=== PATIENT | male | born 1960 | race African-American/Black ===

== ENCOUNTER 2018-08-15 18:51 | Inpatient (IN) | payer OTHER ==
[2018-08-15 20:07] VITALS: BMI 20.8
--- NOTE | 2018-08-15 21:55 | HP ---
COWS - Scale Resting Pulse: 0= [place] 80 or Below Sweatin= Chills/Flushing Restless Observation: 0= Sits Still Pupil Size: 0= Normal to Room Light Bone or Joint Aches: 4=Acute Joint/Muscle Pain Runny Nose/ Eye Tearin= Runny Nose/Eyes GI Upset > 30mins: 2= Nausea/Diarrhea (diarrhea x 2) Tremor Observation: 2= Slight Tremor Visible Yawning Observation: 0= None Anxiety or Irritability: 4=Extreme Anxiety Goose Flesh Skin: 0=Smooth Skin COWS Score: 15 CIWA Score - Admission Criteria OASAS Guidelines: Admission for Medically Managed Detox: Requires at least one of the followin. CIWA greater than 12 2. Seizures within the past 24 hours 3. Delirium tremens within the past 24 hours 4. Hallucinations within the past 24 hours 5. Acute intervention needed for co occurring medical disorder 6. Acute intervention needed for co occurring psychiatric disorder 7. Severe withdrawal that cannot be handled at a lower level of care (continued vomiting, continued diarrhea, abnormal vital signs) requiring intravenous medication and/or fluids 8. Admission ROS [facility] Chief Complaint: Heroin withdrawal symptoms Allergies/Adverse Reactions: Allergies Allergy/AdvReac Type Severity Reaction Status Date / Time ketorolac [From Toradol] Allergy Severe Rash Verified 08/15/18 20:03 History of Present Illness: 58 years old male with a year history of heroin dependence is seeking admission to detox. Patient reports that this is first detox and first admission to [facility]. He reports history of depression and denies suicide attempt/ suicidal ideation at this time. Exam Limitations: No Limitations - Ebola screening Have you traveled outside of the country in the last 21 days: No Have you had contact with anyone from an Ebola affected area: No Have you been sick,other than usual withdrawal symptoms: No Do you have a fever: No - Review of Systems Constitutional: Chills, Malaise, Changes in sleep EENT: reports: Sinus Pressure Respiratory: reports: No Symptoms reported Cardiac: reports: No Symptoms Reported GI: reports: Diarrhea, Poor Appetite, Poor Fluid Intake, Abdominal cramping : reports: No Symptoms Reported Musculoskeletal: reports: Back Pain Integumentary: reports: Dryness, Flushing Neuro: reports: Tremors Endocrine: reports: No Symptoms Reported Hematology: reports: No Symptoms Reported Psychiatric: reports: Anxious, Depressed Other Systems: Reviewed and Negative Patient History - Patient Medical History Hx Anemia: No Hx Asthma: No Hx Chronic Obstructive Pulmonary Disease (COPD): No Hx Cancer: No Hx Cardiac Disorders: No Hx Congestive Heart Failure: No Hx Hypertension: No Hx Hypercholesterolemia: No Hx Pacemaker: No HX Cerebrovascular Accident: No Hx Seizures: No Hx Dementia: No Hx Diabetes: No Hx Gastrointestinal Disorders: No Hx Liver Disease: No Hx Genitourinary Disorders: No Hx Sexually Transmitted Disorders: No Hx Renal Disease (ESRD): No Hx Thyroid Disease: No Hx Human Immunodeficiency Virus (HIV): No (Negative 2017) Hx Hepatitis C: No Hx Depression: Yes (Not on medication) Hx Suicide Attempt: No (Denies suicidal ideation at this time) Hx Bipolar Disorder: No Hx Schizophrenia: No - Patient Surgical History Past Surgical History: No - PPD History Previous Implant?: Yes ([facility] for a year) Documented Results: Positive w/o proof Implanted On Prior [facility] Admission?: No PPD to be Administered?: No - Reproductive History Patient is a Female of Child Bearing Age (11 -55 yrs old): No (Male) - Smoking Cessation Smoking history: Current every day smoker Have you smoked in the past 12 months: Yes Aproximately how many cigarettes per day: 5 Hx Chewing Tobacco Use: No Initiated information on smoking cessation: Yes 'Breaking Loose' booklet given: 08/15/18 - Substance & Tx. History Hx Alcohol Use: No Hx Substance Use: Yes Substance Use Type: Cocaine, Heroin Hx Substance Use Treatment: No - Substances abused Heroin Substance route: Inhalation Frequency: Daily Amount used: 15 bags Age of first use: 58 Date of last use: 08/12/18 Cocaine Substance route: Inhalation Amount used: 1 bag Age of first use: 57 Date of last use: 08/14/18 Family Disease History - Family Disease History Family History: Denies Admission Physical Exam BHS - Vital Signs Vital Signs: Vital Signs - 24 hr 08/15/18 19:59 Temperature 98.6 F Pulse Rate 69 Respiratory 20 Rate Blood Pressure 151/92 - Physical General Appearance: Yes: Moderate Distress, Tremorous, Anxious HEENTM: Yes: EOMI, Normal ENT Inspection, Normal Voice, ISELA Respiratory: Yes: Normal Breath Sounds, No Respiratory Distress Neck: Yes: Supple Breast: Yes: Breast Exam Deferred Abdominal: Yes: Normal Bowel Sounds Genitourinary: Yes: Within Normal Limits Back: Yes: Normal Inspection Musculoskeletal: Yes: Back pain Extremities: Yes: Tremors Integumentary: Yes: Warm Lymphatic: Yes: Within Normal Limits - Diagnostic (1) Opioid dependence with withdrawal Current Visit: Yes Status: Acute (2) Nicotine dependence Current Visit: Yes Status: Chronic Qualifiers: Nicotine product type: cigarettes Substance use status: uncomplicated Qualified Code(s): F17.210 - Nicotine dependence, cigarettes, uncomplicated (3) Depression Current Visit: Yes Status: Chronic Qualifiers: Depression Type: unspecified Qualified Code(s): F32.9 - Major depressive disorder, single episode, unspecified Cleared for Admission S - Detox or Rehab [facility] Level of Care: Medically Managed Detox Regimen/Protocol: Methadone Breathalyzer - Breathalyzer Breathalyzer: 0 Urine Drug Screen - Test Device Lot number: [id number] Expiration date: 06/30/19 - Control Is test valid?: Yes - Results Drug screen NEGATIVE: No Urine drug screen results: CHERI-Cocaine, MOP-Opiates Inpatient Rehab Admission - Rehab Decision to Admit Inpatient rehab admission?: No
[2018-08-15] MEDS ORDERED: MENTHOL/PHENOL 1 EACH UD MM PRN (22:04)
[2018-08-15] MEDS ORDERED: MAG HYDROX/AL HYDROX/SIMETH 30 ML UNIT-DOSE CUP PO PRN (22:04)
[2018-08-15] MEDS ORDERED: MAGNESIUM CITRATE 300 ML BOTTLE PO PRN (22:04)
[2018-08-15] MEDS ORDERED: MAGNESIUM HYDROX 2400MG/30ML ORAL SUSPENSION 30 ML CUP PO PRN (22:04)
[2018-08-15] MEDS ORDERED: NICOTINE POLACRILEX 2 MG GUM BUC PRN (22:04)
[2018-08-15] MEDS ORDERED: ACETAMINOPHEN 325 MG TABLET (FP) PO PRN ×2 (22:04)
[2018-08-15] MEDS ORDERED: METHADONE HCL 10 MG TABLET (FOR DETOX USE ONLY) PO ONE (23:00)
[2018-08-15] MEDS: MELATONIN 5 MG TABLETS PO PRN (23:04)
[2018-08-15] MEDS: hydrOXYzine PAMOATE 25 MG CAPSULE (FP) PO PRN (23:04)
[2018-08-15] MEDS: cloNIDine HCL 0.1 MG TABLET PO PRN (23:04)
[2018-08-16] MEDS ORDERED: METHADONE HCL 10 MG TABLET (FOR DETOX USE ONLY) PO ONE (10:00)
[2018-08-16 10:05] LABS: HEMATOCRIT 36.9 % (35.4-49); HEMOGLOBIN 11.8 GM/dL (11.7-16.9); MEAN CELL VOLUME 84.1 fl (80-96); MEAN PLT VOLUME 7.8 fl (7.5-11.1); PLATELET COUNT 297 K/MM3 (134-434); RBC 4.38 M/mm3 (4.00-5.60); RDW 13.3 % (11.9-15.9); WHITE BLOOD COUNT 5.5 K/mm3 (4.0-10.0)
[2018-08-16] MEDS: PRENATAL VITAMINS W/ FOLIC ACID TABLET (FP) PO SCH (10:06)
[2018-08-16] MEDS: NICOTINE 14 MG/24 HOURS TOPICAL PATCH TD SCH (10:07)
[2018-08-16 10:09] LABS: ALBUMIN 3.2 g/dl (3.4-5.0); BILIRUBIN,TOTAL 0.6 mg/dL (0.2-1); CALCIUM 8.5 mg/dL (8.5-10.1); CREATININE 1.2 mg/dL (0.55-1.3); POTASSIUM 4.1 mmol/L (3.5-5.1); TOT PROT 6.6 g/dl (6.4-8.2)
--- NOTE | 2018-08-16 13:38 | EKG ---
Test Reason : Blood Pressure : / mmHG Vent. Rate : 075 BPM Atrial Rate : 075 BPM P-R Int : 130 ms QRS Dur : 080 ms QT Int : 386 ms P-R-T Axes : 073 080 065 degrees QTc Int : 431 ms NORMAL SINUS RHYTHM WITH SINUS ARRHYTHMIA NORMAL ECG NO PREVIOUS ECGS AVAILABLE Confirmed by HERMILO CADENA MD ([id number]) on 08/16/2018 1:37:52 PM Referred By: LLOYD Confirmed By:HERMILO CADENA MD
--- NOTE | 2018-08-16 14:40 | PN ---
BHS COWS - Scale Resting Pulse: 0= [place] 80 or Below Sweatin= Chills/Flushing Restless Observation: 0= Sits Still Pupil Size: 0= Normal to Room Light Bone or Joint Aches: 2= Severe Diffuse Aches Runny Nose/ Eye Tearin= Runny Nose/Eyes GI Upset > 30mins: 0= None Tremor Observation of Outstretched Hands: 0= None Yawning Observation: 1= 1-2x During Session Anxiety or Irritability: 2=Irritable/Anxious Goose Flesh Skin: 3=Piloerection COWS Score: 11 BHS Progress Note (SOAP) Subjective: Sweating, Body Aches, Nasal Congestion. Objective: PATIENT A & O X 2 (UNCERTAIN ABOUT CURRENT DAY / DATE). PATIENT OBSERVED AMBULATING ON UNIT UNASSISTED. IN NO ACUTE DISTRESS. 08/16/18 14:40 Vital Signs Temperature 98.4 F 08/16/18 12:54 Pulse Rate 77 08/16/18 12:54 Respiratory Rate 20 08/16/18 12:54 Blood Pressure 135/84 08/16/18 12:54 O2 Sat by Pulse Oximetry (%) Laboratory Tests 08/16/18 08/16/18 08/16/18 07:00 07:00 07:00 WBC 5.5 RBC 4.38 Hgb 11.8 Hct 36.9 MCV 84.1 MCH 27.0 MCHC 32.0 RDW 13.3 Plt Count 297 MPV 7.8 Sodium 140 Potassium 4.1 Chloride 104 Carbon Dioxide 29 Anion Gap 6 L BUN 12 Creatinine 1.2 Est GFR (CKD-EPI)AfAm 77.88 Est GFR (CKD-EPI)NonAf 67.19 Random Glucose 149 H Calcium 8.5 Total Bilirubin 0.6 AST 17 ALT 14 Alkaline Phosphatase 132 H Total Protein 6.6 Albumin 3.2 L RPR Titer Nonreactive LABS NOTED. Assessment: 08/16/18 14:41 WITHDRAWAL SYMPTOMS. HYPERGLYCEMIA. 08/16/18 14:42 Plan: CONTINUE DETOX. INCREASE DAILY PO FLUID INTAKE. BGM ACBK FOR ELEVATED ADMISSION RANDOM GLUCOSE LEVEL. LIDOCAINE PATCH FOR LOWER BACK PAIN.
[2018-08-16] MEDS: LIDOCAINE 5% TOPICAL PATCH TP SCH (16:13)
[2018-08-16] MEDS: hydrOXYzine PAMOATE 25 MG CAPSULE (FP) PO PRN (22:16)
[2018-08-16] MEDS: MELATONIN 5 MG TABLETS PO PRN (22:16)
[2018-08-16] MEDS: THIAMINE HCL 100 MG TABLET (FP) PO SCH (22:16)
[2018-08-16] MEDS: LIDOCAINE PATCH REMOVAL MC SCH (22:17)
[2018-08-17] MEDS: hydrOXYzine PAMOATE 25 MG CAPSULE (FP) PO PRN ×2 (07:00→19:51)
[2018-08-17] MEDS: cloNIDine HCL 0.1 MG TABLET PO PRN ×2 (07:00→15:28)
[2018-08-17] MEDS: METHOCARBAMOL 500 MG TABLET PO PRN ×2 (07:03→19:51)
[2018-08-17] MEDS: PRENATAL VITAMINS W/ FOLIC ACID TABLET (FP) PO SCH (09:46)
[2018-08-17] MEDS: NICOTINE 14 MG/24 HOURS TOPICAL PATCH TD SCH (09:47)
[2018-08-17] MEDS ORDERED: METHADONE HCL 10 MG TABLET (FOR DETOX USE ONLY) PO ONE (10:00)
[2018-08-17] MEDS: LIDOCAINE 5% TOPICAL PATCH TP SCH (10:03)
--- NOTE | 2018-08-17 10:57 | PN ---
BHS COWS - Scale Resting Pulse: 0= [place] 80 or Below Sweatin= Chills/Flushing Restless Observation: 3= Extraneous Movement Pupil Size: 0= Normal to Room Light Bone or Joint Aches: 1= Mild Discomfort Runny Nose/ Eye Tearin= None GI Upset > 30mins: 1= Stomach Cramp Tremor Observation of Outstretched Hands: 2= Slight Tremor Visible Yawning Observation: 1= 1-2x During Session Anxiety or Irritability: 1=Feels Anxious/Irritable Goose Flesh Skin: 0=Smooth Skin COWS Score: 10 BHS Progress Note (SOAP) Subjective: ANXIETY, FATIGUE, HOT/COLD CHILLS, SWEATS. Objective: 08/17/18 10:56 Vital Signs 08/17/18 08/17/18 08/17/18 03:30 06:01 06:30 Temperature 98.5 F Pulse Rate 61 Respiratory 18 18 18 Rate Blood Pressure 147/78 08/17/18 09:09 Temperature 98.1 F Pulse Rate 61 Respiratory 18 Rate Blood Pressure 107/56 L Laboratory Tests 08/16/18 08/16/18 08/16/18 07:00 07:00 07:00 WBC 5.5 RBC 4.38 Hgb 11.8 Hct 36.9 MCV 84.1 MCH 27.0 MCHC 32.0 RDW 13.3 Plt Count 297 MPV 7.8 Sodium 140 Potassium 4.1 Chloride 104 Carbon Dioxide 29 Anion Gap 6 L BUN 12 Creatinine 1.2 Est GFR (CKD-EPI)AfAm 77.88 Est GFR (CKD-EPI)NonAf 67.19 Random Glucose 149 H Calcium 8.5 Total Bilirubin 0.6 AST 17 ALT 14 Alkaline Phosphatase 132 H Total Protein 6.6 Albumin 3.2 L RPR Titer Nonreactive LABS NOTED Assessment: 08/17/18 10:58 WITHDRAWAL SX ELEVATED GLC ELEVATED ALK PHOS Plan: CONTINUE DETOX INCREASE PO FLUIDS REPEAT ALK PHOS IN A.M BGM ACBK ORDERED BUT PT REFUSED BGM THIS MORNING PER NURSE VALERO'S NOTE. PT TO FOLLOW UP WITH HIS PCP AFTER DISCHARGE.
[2018-08-17] MEDS: THIAMINE HCL 100 MG TABLET (FP) PO SCH (22:11)
[2018-08-17] MEDS: LIDOCAINE PATCH REMOVAL MC SCH (22:11)
[2018-08-17] MEDS: MELATONIN 5 MG TABLETS PO PRN (22:12)
[2018-08-18] MEDS: METHOCARBAMOL 500 MG TABLET PO PRN ×2 (06:56→17:45)
[2018-08-18] MEDS: hydrOXYzine PAMOATE 25 MG CAPSULE (FP) PO PRN ×3 (06:56→19:51)
[2018-08-18] MEDS: PRENATAL VITAMINS W/ FOLIC ACID TABLET (FP) PO SCH (09:45)
[2018-08-18] MEDS: NICOTINE 14 MG/24 HOURS TOPICAL PATCH TD SCH (09:45)
[2018-08-18] MEDS ORDERED: METHADONE HCL 10 MG TABLET (FOR DETOX USE ONLY) PO ONE (10:00)
[2018-08-18] MEDS: LIDOCAINE 5% TOPICAL PATCH TP SCH (11:14)
--- NOTE | 2018-08-18 13:43 | PN ---
BHS COWS - Scale Resting Pulse: 0= [place] 80 or Below Sweatin= Chills/Flushing Restless Observation: 0= Sits Still Pupil Size: 0= Normal to Room Light Bone or Joint Aches: 1= Mild Discomfort Runny Nose/ Eye Tearin= None GI Upset > 30mins: 1= Stomach Cramp Tremor Observation of Outstretched Hands: 1= Tremor [place], Not Seen Yawning Observation: 1= 1-2x During Session Anxiety or Irritability: 1=Feels Anxious/Irritable Goose Flesh Skin: 0=Smooth Skin COWS Score: 6 S Progress Note (SOAP) Subjective: feeling better discuss medication assisted maintenance treatment program encourage bulk picker narcan kit from pharmacy Objective: 08/18/18 13:42 Vital Signs Temperature 97.3 F L 08/18/18 13:08 Pulse Rate 78 08/18/18 13:08 Respiratory Rate 19 08/18/18 13:08 Blood Pressure 128/64 08/18/18 13:08 O2 Sat by Pulse Oximetry (%) Laboratory Last Values WBC 5.5 K/mm3 (4.0-10.0) 08/16/18 07:00 RBC 4.38 M/mm3 (4.00-5.60) 08/16/18 07:00 Hgb 11.8 GM/dL (11.7-16.9) 08/16/18 07:00 Hct 36.9 % (35.4-49) 08/16/18 07:00 MCV 84.1 fl (80-96) 08/16/18 07:00 MCH 27.0 pg (25.7-33.7) 08/16/18 07:00 MCHC 32.0 g/dl (32.0-35.9) 08/16/18 07:00 RDW 13.3 % (11.9-15.9) 08/16/18 07:00 Plt Count 297 K/MM3 (134-434) 08/16/18 07:00 MPV 7.8 fl (7.5-11.1) 08/16/18 07:00 Sodium 140 mmol/L (136-145) 08/16/18 07:00 Potassium 4.1 mmol/L (3.5-5.1) 08/16/18 07:00 Chloride 104 mmol/L (98-107) 08/16/18 07:00 Carbon Dioxide 29 mmol/L (21-32) 08/16/18 07:00 Anion Gap 6 MMOL/L (8-16) L 08/16/18 07:00 BUN 12 mg/dL (7-18) 08/16/18 07:00 Creatinine 1.2 mg/dL (0.55-1.3) 08/16/18 07:00 Est GFR (CKD-EPI)AfAm 77.88 08/16/18 07:00 Est GFR (CKD-EPI)NonAf 67.19 08/16/18 07:00 Random Glucose 149 mg/dL (74-106) H 08/16/18 07:00 Calcium 8.5 mg/dL (8.5-10.1) 08/16/18 07:00 Total Bilirubin 0.6 mg/dL (0.2-1) 08/16/18 07:00 AST 17 U/L (15-37) 08/16/18 07:00 ALT 14 U/L (13-61) 08/16/18 07:00 Alkaline Phosphatase 120 U/L (45-117) H 08/18/18 07:50 Total Protein 6.6 g/dl (6.4-8.2) 08/16/18 07:00 Albumin 3.2 g/dl (3.4-5.0) L 08/16/18 07:00 RPR Titer Nonreactive (NONREACTIVE) 08/16/18 07:00 lab noted Assessment: 08/18/18 13:42 mild opiate withdrawal sx Plan: continue detox
[2018-08-18] MEDS: THIAMINE HCL 100 MG TABLET (FP) PO SCH (21:46)
[2018-08-18] MEDS: MELATONIN 5 MG TABLETS PO PRN (21:46)
[2018-08-18] MEDS: LIDOCAINE PATCH REMOVAL MC SCH (21:47)
[2018-08-19] MEDS: METHOCARBAMOL 500 MG TABLET PO PRN (05:07)
[2018-08-19] MEDS: hydrOXYzine PAMOATE 25 MG CAPSULE (FP) PO PRN (05:07)
[2018-08-19] MEDS ORDERED: METHADONE HCL 5 MG TABLET (FOR DETOX USE ONLY) PO ONE (06:00)
[2018-08-19 09:25] VITALS: BP 128/67; PULSE 65; TEMP 98.4
[2018-08-19] MEDS: NICOTINE 14 MG/24 HOURS TOPICAL PATCH TD SCH (10:21)
[2018-08-19] MEDS: LIDOCAINE 5% TOPICAL PATCH TP SCH (10:21)
[2018-08-19] MEDS: PRENATAL VITAMINS W/ FOLIC ACID TABLET (FP) PO SCH (10:21)
--- NOTE | 2018-08-19 15:23 | DS ---
[facility] Detox Discharge Summary Admission Date: 08/15/18 Discharge Date: 08/19/18 - History Present History: Opioid Dependence Additional Comments: 58 years old male admitted on 08/15/18 for opiate withdrawal stabilization completed detox regimen aftercare medication assisted maintenance treatment program Pertinent Past History: bring in medication list and lab report to aftercare appointment - Physical Exam Results Vital Signs: Vital Signs Temperature 98.4 F 08/19/18 09:25 Pulse Rate 65 08/19/18 09:25 Respiratory Rate 18 08/19/18 09:25 Blood Pressure 128/67 08/19/18 09:25 O2 Sat by Pulse Oximetry (%) Pertinent Admission Physical Exam Findings: opiate withdrawal sx Laboratory Last Values WBC 5.5 K/mm3 (4.0-10.0) 08/16/18 07:00 RBC 4.38 M/mm3 (4.00-5.60) 08/16/18 07:00 Hgb 11.8 GM/dL (11.7-16.9) 08/16/18 07:00 Hct 36.9 % (35.4-49) 08/16/18 07:00 MCV 84.1 fl (80-96) 08/16/18 07:00 MCH 27.0 pg (25.7-33.7) 08/16/18 07:00 MCHC 32.0 g/dl (32.0-35.9) 08/16/18 07:00 RDW 13.3 % (11.9-15.9) 08/16/18 07:00 Plt Count 297 K/MM3 (134-434) 08/16/18 07:00 MPV 7.8 fl (7.5-11.1) 08/16/18 07:00 Sodium 140 mmol/L (136-145) 08/16/18 07:00 Potassium 4.1 mmol/L (3.5-5.1) 08/16/18 07:00 Chloride 104 mmol/L (98-107) 08/16/18 07:00 Carbon Dioxide 29 mmol/L (21-32) 08/16/18 07:00 Anion Gap 6 MMOL/L (8-16) L 08/16/18 07:00 BUN 12 mg/dL (7-18) 08/16/18 07:00 Creatinine 1.2 mg/dL (0.55-1.3) 08/16/18 07:00 Est GFR (CKD-EPI)AfAm 77.88 08/16/18 07:00 Est GFR (CKD-EPI)NonAf 67.19 08/16/18 07:00 Random Glucose 149 mg/dL (74-106) H 08/16/18 07:00 Calcium 8.5 mg/dL (8.5-10.1) 08/16/18 07:00 Total Bilirubin 0.6 mg/dL (0.2-1) 08/16/18 07:00 AST 17 U/L (15-37) 08/16/18 07:00 ALT 14 U/L (13-61) 08/16/18 07:00 Alkaline Phosphatase 120 U/L (45-117) H 08/18/18 07:50 Total Protein 6.6 g/dl (6.4-8.2) 08/16/18 07:00 Albumin 3.2 g/dl (3.4-5.0) L 08/16/18 07:00 RPR Titer Nonreactive (NONREACTIVE) 08/16/18 07:00 lab noted - Treatment Hospital Course: Detox Protocol Followed, Detoxed Safely, Responded well, Discharged Condition Good, Rehab Referral Accepted Patient has Accepted a Rehab Referral to: medication assisted maintenance treatment program - Medication Discharge Medications: Ambulatory Orders Naloxone HCl [Narcan] 4 mg NS ASDIR PRN #1 spray 08/18/18 - Diagnosis (1) Opioid dependence with withdrawal Status: Acute (2) Nicotine dependence Status: Acute Qualifiers: Nicotine product type: cigarettes Substance use status: in withdrawal Qualified Code(s): F17.213 - Nicotine dependence, cigarettes, with withdrawal - AMA Did Patient Leave Against Medical Advice: No
== END 2018-08-19 11:22 | disposition home or self-care (01) | DRG 897 ==
LOC: YASAS 18:51 → Y3N 22:14
PROVIDERS: ADMIT Surgery; ATTEND Surgery
PROC: HZ2ZZZZ Detoxification Services for Substance Abuse Treatment (ICD-10-PCS; principal; 2018-08-15)
DX: F11.23 Opioid dependence with withdrawal (principal); F17.213 Nicotine dependence, cigarettes, with withdrawal; F32.9 Major depressive disorder, single episode, unspecified; R73.9 Hyperglycemia, unspecified; R94.8 Abnormal results of function studies of other organs and systems; Z59.0 Homelessness
CPT/HCPCS: 36415; 71046-TC-FY; 80053; 84075; 85027; 86593; 93005; 93010; J0735

== ENCOUNTER 2018-11-28 12:38 | Inpatient (IN) | payer OTHER ==
--- NOTE | 2018-11-28 14:16 | HP ---
COWS - Scale Resting Pulse: 0= [place] 80 or Below Sweatin=Flushed/Facial Moisture Restless Observation: 3= Extraneous Movement Pupil Size: 0= Normal to Room Light Bone or Joint Aches: 4=Acute Joint/Muscle Pain Runny Nose/ Eye Tearin= Runny Nose/Eyes GI Upset > 30mins: 0= None Tremor Observation: 1= Tremor [place], Not Seen Yawning Observation: 0= None Anxiety or Irritability: 1=Feels Anxious/Irritable Goose Flesh Skin: 0=Smooth Skin COWS Score: 13 CIWA Score - Admission Criteria OASAS Guidelines: Admission for Medically Managed Detox: Requires at least one of the followin. CIWA greater than 12 2. Seizures within the past 24 hours 3. Delirium tremens within the past 24 hours 4. Hallucinations within the past 24 hours 5. Acute intervention needed for co occurring medical disorder 6. Acute intervention needed for co occurring psychiatric disorder 7. Severe withdrawal that cannot be handled at a lower level of care (continued vomiting, continued diarrhea, abnormal vital signs) requiring intravenous medication and/or fluids 8. Admission ROS [facility] - [facility] Chief Complaint: detox heroin Allergies/Adverse Reactions: Allergies Allergy/AdvReac Type Severity Reaction Status Date / Time ketorolac [From Toradol] Allergy Severe Rash Verified 12/03/18 13:12 History of Present Illness: 58M h/o pancreatitis, h/o cardiac arrest 7-8ys prior at [facility], presenting for heroin detox, sniffs 10-15bags daily. Last usage was 2200 on 11/27/18. Tried detox at [facility] prior but did not get set up with a methadone program. Previous dosage was 55mg. Formerly, was prescribed Fentanyl patches for chronic LBP, ankle pain. Then transitioned to heroin for withdrawal symptoms after Medicaid was stopped 1 year ago. Uses cocaine, last usage yesterday. Takes 4-5bags daily. Former chronic alcoholic, drinking 24beers/daily, last drink 10ys prior. Smokes 5 cig/daily. Denies trouble with law. Formerly, worked with [employer] 10ys prior. Panhandles for money, [place]. Exam Limitations: No Limitations - Ebola screening Have you traveled outside of the country in the last 21 days: No Have you had contact with anyone from an Ebola affected area: No Do you have a fever: No - Review of Systems Constitutional: No Symptoms Reported EENT: reports: Tearing, Dental Problems. denies: Blurred Vision, Double Vision Respiratory: denies: Cough, Shortness of Breath Cardiac: denies: Chest Pain, Lightheadedness, Palpitations GI: denies: Abdominal Distended, Blood Streaked Bowels, Constipated, Diarrhea, Nausea, Vomiting : denies: Burning, Frequency, Urgency Musculoskeletal: reports: Back Pain, Joint Pain (Right ankle pain) Integumentary: reports: Dryness, Erythema Neuro: denies: Headache Endocrine: denies: Excessive Sweating, Flushing Psychiatric: reports: Anxious Patient History - Patient Medical History Hx Anemia: No Hx Asthma: No Hx Chronic Obstructive Pulmonary Disease (COPD): No Hx Cancer: No Hx Cardiac Disorders: No Hx Congestive Heart Failure: No Hx Hypertension: No Hx Hypercholesterolemia: No Hx Pacemaker: No HX Cerebrovascular Accident: No Hx Seizures: No Hx Dementia: No Hx Diabetes: No Hx Gastrointestinal Disorders: No Hx Liver Disease: No Hx Genitourinary Disorders: No Hx Sexually Transmitted Disorders: No Hx Renal Disease (ESRD): No Hx Thyroid Disease: No Hx Human Immunodeficiency Virus (HIV): No (Negative 2017) Hx Hepatitis C: No Hx Depression: Yes (Not on medication) Hx Suicide Attempt: No (Denies suicidal ideation at this time) Hx Bipolar Disorder: No Hx Schizophrenia: No - Patient Surgical History Past Surgical History: No Hx Neurologic Surgery: No Hx Cataract Extraction: No Hx Cardiac Surgery: No Hx Lung Surgery: No Hx Breast Surgery: No Hx Breast Biopsy: No Hx Abdominal Surgery: No Hx Appendectomy: No Hx Cholecystectomy: No Hx Genitourinary Surgery: No Hx Section: No Hx Orthopedic Surgery: No Other Surgical History: INTESTINAL SURGERY Anesthesia Reaction: No - Smoking Cessation Smoking history: Current every day smoker Have you smoked in the past 12 months: Yes Aproximately how many cigarettes per day: 5 Hx Chewing Tobacco Use: No Initiated information on smoking cessation: No - Substance & Tx. History Hx Alcohol Use: Yes Hx Substance Use: Yes Substance Use Type: Alcohol, Cocaine, Heroin, Opiates, Prescribed - Substances abused Heroin Substance route: Inhalation Frequency: Daily Amount used: 15 bags Age of first use: 58 Date of last use: 11/27/18 Cocaine Substance route: Inhalation Amount used: 1 bag Age of first use: 57 Date of last use: 11/27/18 Alcohol Substance route: Oral Frequency: Daily Amount used: 1 pint of gin/ 1 case of beer. Age of first use: 22 Date of last use: 11/27/18 Family Disease History - Family Disease History Other Family History: no known hx Admission Physical Exam [facility] - Vital Signs Vital Signs: Vital Signs - 24 hr 11/28/18 13:27 Temperature 97.6 F Pulse Rate 58 L Respiratory 20 Rate Blood Pressure 124/71 - Physical General Appearance: Yes: Cachetic, Sweating, Anxious HEENTM: Yes: Normocephalic, Other (moderate temporal wasting). No: Pale Conjunctivae R, Pale Conjunctivae L, Scleral Ictenus R, Scleral Ictenus L Respiratory: Yes: Lungs Clear. No: Chest Non-Tender, Decreased Breath Sounds, Labored Respiration, No Accessory Muscle Use, Stridor, Wheezing Neck: Yes: Supple, Trachea in good position Cardiology: Yes: Regular Rhythm, S1, S2, Bradycardia Abdominal: Yes: Soft. No: Guarding, Rebound, Tenderness Back: No: Vertebral Tenderness Extremities: Yes: Other (Right ankle swelling w/o edema, nonTTP) Neurological: Yes: Alert, Other (oriented to person, plalce) Integumentary: Yes: Dry, Warm Cleared for Admission [facility] - Detox or Rehab [facility] Level of Care: Medically Managed Detox Regimen/Protocol: Methadone Breathalyzer - Breathalyzer Breathalyzer: 0 Urine Drug Screen - Test Device Lot number: [id number] Expiration date: 06/30/19 - Control Is test valid?: Yes - Results Drug screen NEGATIVE: No Urine drug screen results: CHERI-Cocaine, MOP-Opiates Inpatient Rehab Admission - Rehab Decision to Admit Inpatient rehab admission?: No
--- NOTE | 2018-11-28 14:53 | PN ---
Teaching Attending Note Name of Resident: Rickey Banks ATTENDING PHYSICIAN STATEMENT I saw and evaluated the patient. I reviewed the resident's note and discussed the case with the resident. I agree with the resident's findings and plan as documented. SUBJECTIVE: 58 yo with h/o pancreatitis here for cocaine use and heroin use disorders- here for detox. Was on fentanyl patch for pain after a fall, switched to heroin last year. Was in a MAT methadone program- left earlier this. homeless. OBJECTIVE: Vital Signs - 24 hr 11/28/18 13:27 Temperature 97.6 F Pulse Rate 58 L Respiratory 20 Rate Blood Pressure 124/71 alert and oriented X2 ASSESSMENT AND PLAN: Admit for heroin detox protocol
[2018-11-28] MEDS ORDERED: MENTHOL/PHENOL 1 EACH UD MM PRN (15:08)
[2018-11-28] MEDS ORDERED: NICOTINE POLACRILEX 4 MG GUM BUC PRN (15:08)
[2018-11-28] MEDS ORDERED: BISMUTH SUBSALICYLATE 524 MG/30 ML UD PO PRN (15:08)
[2018-11-28] MEDS ORDERED: MAGNESIUM CITRATE 300 ML BOTTLE PO PRN (15:08)
[2018-11-28] MEDS ORDERED: IBUPROFEN 400 MG TABLET (FP) PO PRN (15:08)
[2018-11-28] MEDS ORDERED: MAGNESIUM HYDROX 2400MG/30ML ORAL SUSPENSION 30 ML CUP PO PRN (15:08)
[2018-11-28] MEDS ORDERED: MAG HYDROX/AL HYDROX/SIMETH 30 ML UNIT-DOSE CUP PO PRN (15:08)
[2018-11-28] MEDS ORDERED: ACETAMINOPHEN 325 MG TABLET (FP) PO PRN ×2 (15:08)
[2018-11-28] MEDS ORDERED: METHADONE HCL 10 MG TABLET (FOR DETOX USE ONLY) PO ONE (16:30)
[2018-11-28] MEDS: THIAMINE HCL 100 MG TABLET (FP) PO SCH (23:04)
[2018-11-29] MEDS ORDERED: METHADONE HCL 5 MG TABLET (FOR DETOX USE ONLY) ONE (09:35)
[2018-11-29] MEDS ORDERED: METHADONE HCL 10 MG TABLET (FOR DETOX USE ONLY) ONE (09:35)
[2018-11-29 09:59] LABS: HEMATOCRIT 35.5 % (35.4-49); HEMOGLOBIN 11.6 GM/dL (11.7-16.9); MCH 27.5 pg (25.7-33.7); MCHC 32.6 g/dl (32.0-35.9); MEAN CELL VOLUME 84.2 fl (80-96); MEAN PLT VOLUME 7.4 fl (7.5-11.1); PLATELET COUNT 292 K/MM3 (134-434); RBC 4.21 M/mm3 (4.00-5.60); RDW 13.6 % (11.9-15.9); WHITE BLOOD COUNT 5.2 K/mm3 (4.0-10.0)
[2018-11-29] MEDS ORDERED: METHADONE (DETOX) 20 MG, METHADONE (DETOX) 5 MG PO ONE (10:00)
[2018-11-29 10:11] LABS: ALBUMIN 3.1 g/dl (3.4-5.0); BILIRUBIN,TOTAL 0.2 mg/dL (0.2-1); BLOOD UREA NITROGEN 9.2 mg/dL (7-18); CALCIUM 8.5 mg/dL (8.5-10.1); TOT PROT 6.1 g/dl (6.4-8.2)
[2018-11-29] MEDS: PRENATAL VITAMINS W/ FOLIC ACID TABLET (FP) PO SCH (10:16)
--- NOTE | 2018-11-29 13:38 | PN ---
S COWS - Scale Resting Pulse: 0= [place] 80 or Below Sweatin= Chills/Flushing Restless Observation: 1= Difficult to Sit Still Pupil Size: 1= Pupils >than Normal Bone or Joint Aches: 2= Severe Diffuse Aches Runny Nose/ Eye Tearin= Runny Nose/Eyes GI Upset > 30mins: 1= Stomach Cramp Tremor Observation of Outstretched Hands: 1= Tremor [place], Not Seen Yawning Observation: 1= 1-2x During Session Anxiety or Irritability: 2=Irritable/Anxious Goose Flesh Skin: 0=Smooth Skin COWS Score: 12 S Progress Note (SOAP) Subjective: alert,irritable,anxios,interrupted sleep,pain in the body and back Objective: 11/29/18 13:37 Vital Signs Temperature 97.6 F 11/29/18 09:44 Pulse Rate 46 L 11/29/18 09:44 Respiratory Rate 16 11/29/18 09:44 Blood Pressure 133/72 11/29/18 09:44 O2 Sat by Pulse Oximetry (%) Laboratory Last Values WBC 5.2 K/mm3 (4.0-10.0) 11/29/18 07:30 RBC 4.21 M/mm3 (4.00-5.60) 11/29/18 07:30 Hgb 11.6 GM/dL (11.7-16.9) L 11/29/18 07:30 Hct 35.5 % (35.4-49) 11/29/18 07:30 MCV 84.2 fl (80-96) 11/29/18 07:30 MCH 27.5 pg (25.7-33.7) 11/29/18 07:30 MCHC 32.6 g/dl (32.0-35.9) 11/29/18 07:30 RDW 13.6 % (11.9-15.9) 11/29/18 07:30 Plt Count 292 K/MM3 (134-434) 11/29/18 07:30 MPV 7.4 fl (7.5-11.1) L 11/29/18 07:30 Sodium 141 mmol/L (136-145) 11/29/18 07:30 Potassium 4.0 mmol/L (3.5-5.1) 11/29/18 07:30 Chloride 108 mmol/L (98-107) H 11/29/18 07:30 Carbon Dioxide 28 mmol/L (21-32) 11/29/18 07:30 Anion Gap 5 MMOL/L (8-16) L 11/29/18 07:30 BUN 9.2 mg/dL (7-18) 11/29/18 07:30 Creatinine 1.0 mg/dL (0.55-1.3) 11/29/18 07:30 Est GFR (CKD-EPI)AfAm 97.08 11/29/18 07:30 Est GFR (CKD-EPI)NonAf 83.76 11/29/18 07:30 Random Glucose 101 mg/dL (74-106) 11/29/18 07:30 Calcium 8.5 mg/dL (8.5-10.1) 11/29/18 07:30 Total Bilirubin 0.2 mg/dL (0.2-1) 11/29/18 07:30 AST 15 U/L (15-37) 11/29/18 07:30 ALT 11 U/L (13-61) L 11/29/18 07:30 Alkaline Phosphatase 123 U/L (45-117) H 11/29/18 07:30 Total Protein 6.1 g/dl (6.4-8.2) L 11/29/18 07:30 Albumin 3.1 g/dl (3.4-5.0) L 11/29/18 07:30 RPR Titer Nonreactive (NONREACTIVE) 11/29/18 07:30 Assessment: 11/29/18 13:38 withdrawal symptom Plan: continue detox methadone regimen
[2018-11-29] MEDS: cloNIDine HCL 0.1 MG TABLET PO PRN (22:31)
[2018-11-29] MEDS: THIAMINE HCL 100 MG TABLET (FP) PO SCH (22:31)
[2018-11-29] MEDS: MELATONIN 5 MG TABLETS PO PRN (22:31)
[2018-11-30] MEDS: hydrOXYzine PAMOATE 25 MG CAPSULE (FP) PO PRN ×2 (05:55→22:02)
[2018-11-30] MEDS: cloNIDine HCL 0.1 MG TABLET PO PRN ×2 (05:55→22:02)
[2018-11-30] MEDS ORDERED: METHADONE HCL 10 MG TABLET (FOR DETOX USE ONLY) PO ONE (10:00)
[2018-11-30] MEDS: PRENATAL VITAMINS W/ FOLIC ACID TABLET (FP) PO SCH (10:33)
--- NOTE | 2018-11-30 15:26 | PN ---
BHS COWS - Scale Resting Pulse: 0= [place] 80 or Below Sweatin= Chills/Flushing Restless Observation: 3= Extraneous Movement Pupil Size: 0= Normal to Room Light Bone or Joint Aches: 4=Acute Joint/Muscle Pain Runny Nose/ Eye Tearin= None GI Upset > 30mins: 0= None Tremor Observation of Outstretched Hands: 2= Slight Tremor Visible Yawning Observation: 0= None Anxiety or Irritability: 2=Irritable/Anxious Goose Flesh Skin: 0=Smooth Skin COWS Score: 12 S Progress Note (SOAP) Subjective: 58 y/o male with heroin dependence on detox methadone taper. Pt c/o chills, sweats,body aches and tremors. Objective: 11/30/18 15:24 Vital Signs - 24 hr 11/29/18 11/29/18 11/30/18 17:56 21:33 00:30 Temperature 97.5 F L 97.7 F Pulse Rate 44 L 48 L Respiratory 16 16 18 Rate Blood Pressure 112/61 159/80 11/30/18 11/30/18 11/30/18 03:30 06:06 09:09 Temperature 97.6 F 97.3 F L Pulse Rate 45 L 48 L Respiratory 18 18 18 Rate Blood Pressure 125/68 107/53 L 11/30/18 11/30/18 13:05 13:15 Temperature 98.2 F 98.2 F Pulse Rate 41 L 41 L Respiratory 18 18 Rate Blood Pressure 134/76 134/76 Laboratory Tests 11/29/18 11/29/18 11/29/18 07:30 07:30 07:30 WBC 5.2 RBC 4.21 Hgb 11.6 L Hct 35.5 MCV 84.2 MCH 27.5 MCHC 32.6 RDW 13.6 Plt Count 292 MPV 7.4 L Sodium 141 Potassium 4.0 Chloride 108 H Carbon Dioxide 28 Anion Gap 5 L BUN 9.2 Creatinine 1.0 Est GFR (CKD-EPI)AfAm 97.08 Est GFR (CKD-EPI)NonAf 83.76 Random Glucose 101 Calcium 8.5 Total Bilirubin 0.2 AST 15 ALT 11 L Alkaline Phosphatase 123 H Total Protein 6.1 L Albumin 3.1 L RPR Titer Nonreactive Alert o x 3. Assessment: 11/30/18 15:25 withdrawal sx Plan: continue detox methadone taper increase po fluids.
[2018-11-30] MEDS: MELATONIN 5 MG TABLETS PO PRN (22:02)
[2018-11-30] MEDS: METHOCARBAMOL 500 MG TABLET PO PRN (22:02)
[2018-11-30] MEDS: THIAMINE HCL 100 MG TABLET (FP) PO SCH (22:02)
[2018-12-01] MEDS ORDERED: METHADONE HCL 10 MG TABLET (FOR DETOX USE ONLY) ONE (09:25)
[2018-12-01] MEDS ORDERED: METHADONE HCL 5 MG TABLET (FOR DETOX USE ONLY) ONE (09:26)
[2018-12-01] MEDS ORDERED: METHADONE (DETOX) 10 MG, METHADONE (DETOX) 5 MG PO ONE (10:00)
[2018-12-01] MEDS: PRENATAL VITAMINS W/ FOLIC ACID TABLET (FP) PO SCH (10:14)
--- NOTE | 2018-12-01 10:50 | PN ---
BHS COWS - Scale Resting Pulse: 0= [place] 80 or Below Sweatin= Chills/Flushing Restless Observation: 0= Sits Still Pupil Size: 0= Normal to Room Light Bone or Joint Aches: 1= Mild Discomfort Runny Nose/ Eye Tearin= Nasal Congestion GI Upset > 30mins: 1= Stomach Cramp Tremor Observation of Outstretched Hands: 2= Slight Tremor Visible Yawning Observation: 1= 1-2x During Session Anxiety or Irritability: 2=Irritable/Anxious Goose Flesh Skin: 0=Smooth Skin COWS Score: 9 S Progress Note (SOAP) Subjective: 58 years old male second patient [facility] admission was admitted on 11/30/18 for acute opiate withdrawal sx management doing well with methadone detox regimen history of hypertension none compliance with antihypertensive medication begin amlodipin 10 mg po daily Objective: 12/01/18 10:57 Vital Signs Temperature 97.2 F L 12/01/18 09:41 Pulse Rate 48 L 12/01/18 09:41 Respiratory Rate 17 12/01/18 09:41 Blood Pressure 124/66 12/01/18 09:41 O2 Sat by Pulse Oximetry (%) Laboratory Last Values WBC 5.2 K/mm3 (4.0-10.0) 11/29/18 07:30 RBC 4.21 M/mm3 (4.00-5.60) 11/29/18 07:30 Hgb 11.6 GM/dL (11.7-16.9) L 11/29/18 07:30 Hct 35.5 % (35.4-49) 11/29/18 07:30 MCV 84.2 fl (80-96) 11/29/18 07:30 MCH 27.5 pg (25.7-33.7) 11/29/18 07:30 MCHC 32.6 g/dl (32.0-35.9) 11/29/18 07:30 RDW 13.6 % (11.9-15.9) 11/29/18 07:30 Plt Count 292 K/MM3 (134-434) 11/29/18 07:30 MPV 7.4 fl (7.5-11.1) L 11/29/18 07:30 Sodium 141 mmol/L (136-145) 11/29/18 07:30 Potassium 4.0 mmol/L (3.5-5.1) 11/29/18 07:30 Chloride 108 mmol/L (98-107) H 11/29/18 07:30 Carbon Dioxide 28 mmol/L (21-32) 11/29/18 07:30 Anion Gap 5 MMOL/L (8-16) L 11/29/18 07:30 BUN 9.2 mg/dL (7-18) 11/29/18 07:30 Creatinine 1.0 mg/dL (0.55-1.3) 11/29/18 07:30 Est GFR (CKD-EPI)AfAm 97.08 11/29/18 07:30 Est GFR (CKD-EPI)NonAf 83.76 11/29/18 07:30 Random Glucose 101 mg/dL (74-106) 11/29/18 07:30 Calcium 8.5 mg/dL (8.5-10.1) 11/29/18 07:30 Total Bilirubin 0.2 mg/dL (0.2-1) 11/29/18 07:30 AST 15 U/L (15-37) 11/29/18 07:30 ALT 11 U/L (13-61) L 11/29/18 07:30 Alkaline Phosphatase 123 U/L (45-117) H 11/29/18 07:30 Total Protein 6.1 g/dl (6.4-8.2) L 11/29/18 07:30 Albumin 3.1 g/dl (3.4-5.0) L 11/29/18 07:30 RPR Titer Nonreactive (NONREACTIVE) 11/29/18 07:30 lab noted Assessment: 12/01/18 10:57 opiate withdrawal sx alert oriented x 3 begin amlodipine Plan: continue methadone detox regimen
[2018-12-01] MEDS: amLODIPine BESYLATE 10 MG TABLET (FP) PO SCH (12:09)
[2018-12-01] MEDS: hydrOXYzine PAMOATE 25 MG CAPSULE (FP) PO PRN (22:25)
[2018-12-01] MEDS: THIAMINE HCL 100 MG TABLET (FP) PO SCH (22:25)
[2018-12-01] MEDS: MELATONIN 5 MG TABLETS PO PRN (22:26)
[2018-12-02] MEDS ORDERED: METHADONE HCL 10 MG TABLET (FOR DETOX USE ONLY) PO ONE (10:00)
--- NOTE | 2018-12-02 10:02 | PN ---
BHS COWS - Scale Resting Pulse: 0= [place] 80 or Below Sweatin= Chills/Flushing Restless Observation: 0= Sits Still Pupil Size: 0= Normal to Room Light Bone or Joint Aches: 1= Mild Discomfort Runny Nose/ Eye Tearin= None GI Upset > 30mins: 1= Stomach Cramp Tremor Observation of Outstretched Hands: 1= Tremor [place], Not Seen Yawning Observation: 1= 1-2x During Session Anxiety or Irritability: 1=Feels Anxious/Irritable Goose Flesh Skin: 0=Smooth Skin COWS Score: 6 BHS Progress Note (SOAP) Subjective: 58 years old male admitted on 11/28/18 for opiate withdrawal sx management did well with methadone detox regimen mild body ache sleep better at night Objective: 12/02/18 10:01 Vital Signs Temperature 98.2 F 12/02/18 09:16 Pulse Rate 41 L 12/02/18 09:16 Respiratory Rate 18 12/02/18 09:16 Blood Pressure 123/71 12/02/18 09:16 O2 Sat by Pulse Oximetry (%) Laboratory Last Values WBC 5.2 K/mm3 (4.0-10.0) 11/29/18 07:30 RBC 4.21 M/mm3 (4.00-5.60) 11/29/18 07:30 Hgb 11.6 GM/dL (11.7-16.9) L 11/29/18 07:30 Hct 35.5 % (35.4-49) 11/29/18 07:30 MCV 84.2 fl (80-96) 11/29/18 07:30 MCH 27.5 pg (25.7-33.7) 11/29/18 07:30 MCHC 32.6 g/dl (32.0-35.9) 11/29/18 07:30 RDW 13.6 % (11.9-15.9) 11/29/18 07:30 Plt Count 292 K/MM3 (134-434) 11/29/18 07:30 MPV 7.4 fl (7.5-11.1) L 11/29/18 07:30 Sodium 141 mmol/L (136-145) 11/29/18 07:30 Potassium 4.0 mmol/L (3.5-5.1) 11/29/18 07:30 Chloride 108 mmol/L (98-107) H 11/29/18 07:30 Carbon Dioxide 28 mmol/L (21-32) 11/29/18 07:30 Anion Gap 5 MMOL/L (8-16) L 11/29/18 07:30 BUN 9.2 mg/dL (7-18) 11/29/18 07:30 Creatinine 1.0 mg/dL (0.55-1.3) 11/29/18 07:30 Est GFR (CKD-EPI)AfAm 97.08 11/29/18 07:30 Est GFR (CKD-EPI)NonAf 83.76 11/29/18 07:30 Random Glucose 101 mg/dL (74-106) 11/29/18 07:30 Calcium 8.5 mg/dL (8.5-10.1) 11/29/18 07:30 Total Bilirubin 0.2 mg/dL (0.2-1) 11/29/18 07:30 AST 15 U/L (15-37) 11/29/18 07:30 ALT 11 U/L (13-61) L 11/29/18 07:30 Alkaline Phosphatase 123 U/L (45-117) H 11/29/18 07:30 Total Protein 6.1 g/dl (6.4-8.2) L 11/29/18 07:30 Albumin 3.1 g/dl (3.4-5.0) L 11/29/18 07:30 RPR Titer Nonreactive (NONREACTIVE) 11/29/18 07:30 lab noted Assessment: 12/02/18 10:01 opiate withdrawal sx alert oriented x 3 ambulating steady gait denies dizziness no shortness of breath Plan: continue methadone detox regimen
[2018-12-02] MEDS: PRENATAL VITAMINS W/ FOLIC ACID TABLET (FP) PO SCH (10:09)
[2018-12-02] MEDS: amLODIPine BESYLATE 10 MG TABLET (FP) PO SCH (10:09)
[2018-12-02] MEDS: hydrOXYzine PAMOATE 25 MG CAPSULE (FP) PO PRN (15:26)
[2018-12-02] MEDS: METHOCARBAMOL 500 MG TABLET PO PRN (17:15)
[2018-12-02] MEDS ORDERED: LOPERAMIDE HCL 2 MG CAPSULE PO PRN (18:49)
--- NOTE | 2018-12-02 18:51 | PN ---
S Progress Note Note: Vital Signs Temperature 98.0 F 12/02/18 17:21 Pulse Rate 53 L 12/02/18 17:21 Respiratory Rate 18 12/02/18 17:21 Blood Pressure 130/72 12/02/18 17:21 O2 Sat by Pulse Oximetry (%) Patient expressed wishes to leave AMA d/t feeling chills, withdrawal symptoms , body aches, diarrhea d/t opioid withdrawal. Patient Aox3 no distress no adventitious breath sounds skin intact, no edema or erythema withdrawal sx Plan: gabapentin 100 mg TID increase PO fluids one time dose flexeril for body aches MAT discussed, reports interested in methadone maintenance at [facility] post discharge Continue to monitor
[2018-12-02] MEDS: CYCLOBENZAPRINE HCL 5 MG TABLET PO SCH (19:19)
[2018-12-02] MEDS: THIAMINE HCL 100 MG TABLET (FP) PO SCH (21:09)
[2018-12-02] MEDS: GABAPENTIN 100 MG CAPSULE (FP) PO SCH (21:09)
[2018-12-02] MEDS: MELATONIN 5 MG TABLETS PO PRN (21:10)
[2018-12-02] MEDS ORDERED: diphenhydrAMINE HCL 25 MG CAPSULE (FP) PO ONE (22:00)
[2018-12-03] MEDS: GABAPENTIN 100 MG CAPSULE (FP) PO SCH (05:11)
[2018-12-03] MEDS ORDERED: METHADONE HCL 5 MG TABLET (FOR DETOX USE ONLY) PO ONE (06:00)
[2018-12-03 09:06] VITALS: BP 119/59; PULSE 46; TEMP 97.4
[2018-12-03] MEDS: PRENATAL VITAMINS W/ FOLIC ACID TABLET (FP) PO SCH (10:14)
[2018-12-03] MEDS: CYCLOBENZAPRINE HCL 5 MG TABLET PO SCH (10:14)
[2018-12-03] MEDS: amLODIPine BESYLATE 10 MG TABLET (FP) PO SCH (10:14)
--- NOTE | 2018-12-03 10:40 | DS ---
[facility] Detox Discharge Summary Admission Date: 11/28/18 Discharge Date: 12/03/18 - History Present History: Opioid Dependence Additional Comments: 58 years old male 2nd patient [facility] admission since 07/2018 was admitted on 11/28/18 for opiate withdrawal sx management did well with methadone detox regimen requests "more methadone" due to muscle aches encourage robaxin strong recommend the patient to go to medication assisted treatment program as aftercare that methadone will be titrated up to suitable dosage - Physical Exam Results Vital Signs: Vital Signs Temperature 97.4 F L 12/03/18 09:05 Pulse Rate 46 L 12/03/18 09:05 Respiratory Rate 18 12/03/18 09:05 Blood Pressure 119/59 L 12/03/18 09:05 O2 Sat by Pulse Oximetry (%) Pertinent Admission Physical Exam Findings: opiate withdrawal sx Laboratory Last Values WBC 5.2 K/mm3 (4.0-10.0) 11/29/18 07:30 RBC 4.21 M/mm3 (4.00-5.60) 11/29/18 07:30 Hgb 11.6 GM/dL (11.7-16.9) L 11/29/18 07:30 Hct 35.5 % (35.4-49) 11/29/18 07:30 MCV 84.2 fl (80-96) 11/29/18 07:30 MCH 27.5 pg (25.7-33.7) 11/29/18 07:30 MCHC 32.6 g/dl (32.0-35.9) 11/29/18 07:30 RDW 13.6 % (11.9-15.9) 11/29/18 07:30 Plt Count 292 K/MM3 (134-434) 11/29/18 07:30 MPV 7.4 fl (7.5-11.1) L 11/29/18 07:30 Sodium 141 mmol/L (136-145) 11/29/18 07:30 Potassium 4.0 mmol/L (3.5-5.1) 11/29/18 07:30 Chloride 108 mmol/L (98-107) H 11/29/18 07:30 Carbon Dioxide 28 mmol/L (21-32) 11/29/18 07:30 Anion Gap 5 MMOL/L (8-16) L 11/29/18 07:30 BUN 9.2 mg/dL (7-18) 11/29/18 07:30 Creatinine 1.0 mg/dL (0.55-1.3) 11/29/18 07:30 Est GFR (CKD-EPI)AfAm 97.08 11/29/18 07:30 Est GFR (CKD-EPI)NonAf 83.76 11/29/18 07:30 Random Glucose 101 mg/dL (74-106) 11/29/18 07:30 Calcium 8.5 mg/dL (8.5-10.1) 11/29/18 07:30 Total Bilirubin 0.2 mg/dL (0.2-1) 11/29/18 07:30 AST 15 U/L (15-37) 11/29/18 07:30 ALT 11 U/L (13-61) L 11/29/18 07:30 Alkaline Phosphatase 123 U/L (45-117) H 11/29/18 07:30 Total Protein 6.1 g/dl (6.4-8.2) L 11/29/18 07:30 Albumin 3.1 g/dl (3.4-5.0) L 11/29/18 07:30 RPR Titer Nonreactive (NONREACTIVE) 11/29/18 07:30 lab noted patient is alert oriented x 3 speech clearly coherently ate breakfast no nausea no vomiting ambulating from bed to bathroom steady gait - Treatment Hospital Course: Detox Protocol Followed, Detoxed Safely, Responded well, Discharged Condition Good, Rehab Referral Accepted Patient has Accepted a Rehab Referral to: methadone assisted treatment program - Medication Discharge Medications: Ambulatory Orders Amlodipine Besylate [Norvasc -] 10 mg PO DAILY #30 tablet 12/02/18 Naloxone HCl [Narcan] 4 mg NS PRN PRN #1 spray 12/02/18 - Diagnosis (1) Opioid dependence with withdrawal Current Visit: Yes Status: Acute (2) Nicotine dependence Current Visit: Yes Status: Acute Qualifiers: Nicotine product type: cigarettes Substance use status: in withdrawal Qualified Code(s): F17.213 - Nicotine dependence, cigarettes, with withdrawal - AMA Did Patient Leave Against Medical Advice: No COWS (PN) - Opiate Withdrawal Resting Pulse: 0= [place] 80 or Below Sweatin= Chills/Flushing Restless Observation: 0= Sits Still Pupil Size: 0= Normal to Room Light Bone or Joint Aches: 1= Mild Discomfort Runny Nose/ Eye Tearin= None GI Upset > 30mins: 0= None Tremor Observation of Outstretched Hands: 1= Tremor [place], Not Seen Yawning Observation: 0= None Anxiety or Irritability: 1=Feels Anxious/Irritable Goose Flesh Skin: 0=Smooth Skin COWS Score: 4
== END 2018-12-03 11:48 | disposition other institution (70) | DRG 897 ==
LOC: YASAS 12:38 → Y3N 15:53
PROVIDERS: ADMIT Surgery; ATTEND Surgery
PROC: HZ2ZZZZ Detoxification Services for Substance Abuse Treatment (ICD-10-PCS; principal; 2018-11-28)
DX: F11.23 Opioid dependence with withdrawal (principal); F10.230 Alcohol dependence with withdrawal, uncomplicated; F14.20 Cocaine dependence, uncomplicated; F17.213 Nicotine dependence, cigarettes, with withdrawal; I10 Essential (primary) hypertension; Z91.14 Patient's other noncompliance with medication regimen; Z59.0 Homelessness
CPT/HCPCS: 36415; 80053; 85027; 86480; 86593; J0735

== ENCOUNTER 2018-12-03 11:55 | Inpatient (IN) | payer OTHER ==
--- NOTE | 2018-12-03 11:09 | HP ---
[facility] Rehab Assess/Revision - Admission History Admitted to Rehab from: [facility] Date of Admission to Rehab: 12/03/18 - Findings Detox History & Physical reviewed: Yes Concur with findings: Yes Comments/Additional Findings: transferred from detox to rehab admission as per protocol Inpatient Rehab Admission - Rehab Decision to Admit Inpatient rehab admission?: Yes - Initial Determination Are CD services needed?: Yes Free of communicable disease: Yes Not in need of hospitalization: Yes - Rehab Admission Criteria Previous failed treatment: Yes Poor recovery environment: Yes Comorbidities: Yes Lacks judgement: Yes Patient is meeting Inpatient Rehab admission criteria:: Yes
[~2018-12-03 11:55] MED LIST: ACETAMINOPHEN 325 MG TABLET (FP) PO PRN; IBUPROFEN 400 MG TABLET (FP) PO PRN; LOPERAMIDE HCL 2 MG CAPSULE PO PRN; MAG HYDROX/AL HYDROX/SIMETH 30 ML UNIT-DOSE CUP PO PRN; MAGNESIUM CITRATE 300 ML BOTTLE PO PRN; MAGNESIUM HYDROX 2400MG/30ML ORAL SUSPENSION 30 ML CUP PO PRN; MENTHOL/PHENOL 1 EACH UD MM PRN; P-EPHED 60MG/TRIPROLIDI 2.5MG TABLET PO PRN; guaiFENesin 200 MG/10 ML 10 ML UNIT-DOSE CUPS PO PRN
[2018-12-03] MEDS: GABAPENTIN 100 MG CAPSULE (FP) PO SCH ×2 (14:55→21:04)
[2018-12-03] MEDS: MELATONIN 5 MG TABLETS PO PRN (21:04)
[2018-12-03] MEDS: THIAMINE HCL 100 MG TABLET (FP) PO SCH (21:04)
[2018-12-04] MEDS: GABAPENTIN 100 MG CAPSULE (FP) PO SCH ×3 (05:47→21:39)
[2018-12-04] MEDS: PRENATAL VITAMINS W/ FOLIC ACID TABLET (FP) PO SCH (14:08)
[2018-12-04] MEDS: amLODIPine BESYLATE 10 MG TABLET (FP) PO SCH (14:08)
[2018-12-04] MEDS: hydrOXYzine PAMOATE 50 MG CAPSULE (FP) PO PRN (18:01)
[2018-12-04] MEDS: NICOTINE POLACRILEX 4 MG GUM BUC PRN (19:53)
[2018-12-04] MEDS: MELATONIN 5 MG TABLETS PO PRN (21:39)
[2018-12-04] MEDS: THIAMINE HCL 100 MG TABLET (FP) PO SCH (21:39)
[2018-12-05] MEDS: GABAPENTIN 100 MG CAPSULE (FP) PO SCH ×3 (05:58→21:39)
[2018-12-05] MEDS: amLODIPine BESYLATE 10 MG TABLET (FP) PO SCH (09:56)
[2018-12-05] MEDS: PRENATAL VITAMINS W/ FOLIC ACID TABLET (FP) PO SCH (09:56)
[2018-12-05] MEDS: hydrOXYzine PAMOATE 50 MG CAPSULE (FP) PO PRN ×2 (09:57→20:19)
--- NOTE | 2018-12-05 11:41 | PN ---
"BHS COWS - Scale Resting Pulse: 0= [place] 80 or Below Sweatin= Chills/Flushing Restless Observation: 0= Sits Still Pupil Size: 0= Normal to Room Light Bone or Joint Aches: 2= Severe Diffuse Aches Runny Nose/ Eye Tearin= Runny Nose/Eyes GI Upset > 30mins: 1= Stomach Cramp Tremor Observation of Outstretched Hands: 2= Slight Tremor Visible Yawning Observation: 0= None Anxiety or Irritability: 1=Feels Anxious/Irritable Goose Flesh Skin: 0=Smooth Skin COWS Score: 9 BHS Progress Note (SOAP) Subjective: Patient requesting suboxone. This report was requested by: June Garcia | Reference #: [id number] There are no results for the search terms that you entered. Prescriptions Dispensed in [place] There are no results for the search terms that you entered. Prescriptions Dispensed in [place] There are no results for the search terms that you entered. Prescriptions Dispensed in [place] There are no results for the search terms that you entered. Prescriptions Dispensed in [place] There are no results for the search terms that you entered. Objective: P/E General: irritated HEENT: [place], normocephalic Heart: s1 s2 Lungs: clear Abd:+BS Neuro: no deficits noted. 12/05/18 15:32 Assessment: withdrawal from opiates 12/05/18 15:33 Plan: will start suboxone."
[2018-12-05] MEDS ORDERED: BUPRENORPHINE/NALOXONE 2 MG/0.5 MG FILM PACKET SL ONE (11:46)
[2018-12-05] MEDS: MELATONIN 5 MG TABLETS PO PRN (21:38)
[2018-12-05] MEDS: THIAMINE HCL 100 MG TABLET (FP) PO SCH (21:38)
[2018-12-05] MEDS: BUPRENORPHINE/NALOXONE 2 MG/0.5 MG FILM PACKET SL SCH (21:39)
[2018-12-06] MEDS: GABAPENTIN 100 MG CAPSULE (FP) PO SCH ×3 (05:52→21:39)
[2018-12-06] MEDS: BUPRENORPHINE/NALOXONE 2 MG/0.5 MG FILM PACKET SL SCH (10:56)
[2018-12-06] MEDS: amLODIPine BESYLATE 10 MG TABLET (FP) PO SCH (10:56)
[2018-12-06] MEDS: PRENATAL VITAMINS W/ FOLIC ACID TABLET (FP) PO SCH (10:56)
[2018-12-06] MEDS: hydrOXYzine PAMOATE 50 MG CAPSULE (FP) PO PRN ×2 (10:58→15:39)
--- NOTE | 2018-12-06 15:11 | PN ---
BHS COWS - Scale Resting Pulse: 0= [place] 80 or Below Sweatin= Chills/Flushing Restless Observation: 1= Difficult to Sit Still Pupil Size: 0= Normal to Room Light Bone or Joint Aches: 1= Mild Discomfort Runny Nose/ Eye Tearin= None GI Upset > 30mins: 2= Nausea/Diarrhea Tremor Observation of Outstretched Hands: 0= None Yawning Observation: 0= None Anxiety or Irritability: 1=Feels Anxious/Irritable Goose Flesh Skin: 0=Smooth Skin COWS Score: 6 BHS Progress Note (SOAP) Subjective: PATIENT SEEN FOR C/O WITHDRAWAL SYMPTOMS. STATES CURRENT SUBOXONE DOSE NOT REALLY HELPING ROS + NAUSEA, CHILLS AND OPIOD CRAVINGS Objective: 12/06/18 15:09 Vital Signs Period Temp Pulse Resp BP Sys/Lopez Pulse Ox Last 24 Hr 97.7 F-98.2 F 56-64 18-18 122-133/60-72 PE ALERT AND ORIENTED X 3 SKIN WARM AND DRY +PERRLA, EOMS INTACT BL EXT FULL ROM, NO TREMORS AMB AD MIESHA ANXIOUS/RESTLESS Assessment: 12/06/18 15:10 SUBOXONE MAT WITHDRAWAL SX Plan: INCREASE SUBOXONE TO 4MG SL BID CONTINUE SUPPORTIVE MEASURES MONITOR CLINICALLY
[2018-12-06] MEDS: BUPRENORPHINE/NALOXONE 4 MG/1 MG FILM PACKET SL SCH (21:39)
[2018-12-06] MEDS: THIAMINE HCL 100 MG TABLET (FP) PO SCH (21:39)
[2018-12-07] MEDS: hydrOXYzine PAMOATE 50 MG CAPSULE (FP) PO PRN ×3 (01:47→15:28)
[2018-12-07] MEDS: GABAPENTIN 100 MG CAPSULE (FP) PO SCH ×3 (06:10→21:13)
[2018-12-07] MEDS: BUPRENORPHINE/NALOXONE 4 MG/1 MG FILM PACKET SL SCH ×2 (09:14→21:13)
[2018-12-07] MEDS: amLODIPine BESYLATE 10 MG TABLET (FP) PO SCH (09:14)
[2018-12-07] MEDS: PRENATAL VITAMINS W/ FOLIC ACID TABLET (FP) PO SCH (09:14)
[2018-12-07] MEDS: THIAMINE HCL 100 MG TABLET (FP) PO SCH (21:13)
[2018-12-08] MEDS: hydrOXYzine PAMOATE 50 MG CAPSULE (FP) PO PRN ×3 (06:09→21:33)
[2018-12-08] MEDS: GABAPENTIN 100 MG CAPSULE (FP) PO SCH ×3 (06:09→21:32)
[2018-12-08] MEDS: amLODIPine BESYLATE 10 MG TABLET (FP) PO SCH (09:03)
[2018-12-08] MEDS: BUPRENORPHINE/NALOXONE 4 MG/1 MG FILM PACKET SL SCH ×2 (09:03→21:31)
[2018-12-08] MEDS: PRENATAL VITAMINS W/ FOLIC ACID TABLET (FP) PO SCH (09:03)
[2018-12-08] MEDS: THIAMINE HCL 100 MG TABLET (FP) PO SCH (21:31)
[2018-12-09] MEDS: hydrOXYzine PAMOATE 50 MG CAPSULE (FP) PO PRN ×3 (07:13→20:43)
[2018-12-09] MEDS: GABAPENTIN 100 MG CAPSULE (FP) PO SCH ×3 (07:14→21:45)
[2018-12-09] MEDS: amLODIPine BESYLATE 10 MG TABLET (FP) PO SCH (10:53)
[2018-12-09] MEDS: PRENATAL VITAMINS W/ FOLIC ACID TABLET (FP) PO SCH (10:53)
[2018-12-09] MEDS: BUPRENORPHINE HCL/NALOXONE 12 MG-3 MG SL FILM PACKET SL SCH (10:55)
--- NOTE | 2018-12-09 16:42 | CONSULT ---
[facility] Psychiatric Consult - Data Date of interview: 12/09/18 Admission source: [facility] Identifying data: Readmission to [facility] for this 58 y/o AA male who completed detoxification (alcohol, heroin, cocaine) at [address] [place] [address], now setting his goals for preservation of sobriety via psychoeducation, relapse prevention, counseling and psychotherapy at [address]. Patient is , a father of three, homeless, unemployed and supported of panhandling (self-report) . Substance Abuse History: Confirmed by the patient in this interview. Details in current [facility] repoirt as follows : Smoking history: Current every day smoker. Have you smoked in the past 12 months: Yes. Aproximately how many cigarettes per day: 5. Hx Chewing Tobacco Use: No. Initiated information on smoking cessation: No. - Substance & Tx. History. Hx Alcohol Use: Yes. Hx Substance Use: Yes. Substance Use Type: Alcohol, Cocaine, Heroin, Opiates, Prescribed. - Substances abused. Heroin. Substance route: Inhalation. Frequency: Daily. Amount used: 15 bags. Age of first use: 58. Date of last use: . Cocaine. Substance route: Inhalation. Amount used: 1 bag. Age of first use: 57. Date of last use: 11/27/18. Alcohol. Substance route: Oral. Frequency: Daily. Amount used: 1 pint of gin/ 1 case of beer. Age of first use: 22. Date of last use: 11/27/18 Medical History: Remarkable for self-report of herniated discs (L3-L4-L5-S1), chronic lumbar pain, antecedent of pancreatitis, history of cardiac arrest at [facility] (upon arrival to ED/causes not known by patient) about seven years ago and past abdominal surgery (intestinal obstruction). Psychiatric History: Patient admits to a history of " a couple of " psychiatric hospitalizations at [facility]. Was diagnosed with MDDand treated with psychotropic medications (names not recalled by patient). Mr Suárez states that he has no affiliation with psychiatric OPD care providers. Has not seen a psychiatrist or taken psychotropic medications for about 18 months. Has experienced suicidal ideation to walk through traffic ten years ago (patient's own verbal account). Physical/Sexual Abuse/Trauma History: No reported history of abuse. Additional Comment: Urine drug screen results: CHERI-Cocaine, MOP-Opiates. Noted. Mental Status Exam - Mental Status Exam Alert and Oriented to: Time, Place, Person Cognitive Function: Good Patient Appearance: Disheveled Mood: Withdrawn, Hopeful Affect: Appropriate, Normal Range Patient Behavior: Appropriate, Cooperative Speech Pattern: Clear, Appropriate Voice Loudness: Normal Thought Process: Intact, Goal Oriented Thought Disorder: Not Present Hallucinations: Denies Suicidal Ideation: Denies Insight/Judgement: Fair Sleep: Fair Appetite: Good Muscle strength/Tone: Normal Gait/Station: Normal Psychiatric Findings - Problem List ([place] 1, 2,3) (1) Alcohol use disorder Current Visit: Yes Status: Chronic (2) Heroin dependence Current Visit: Yes Status: Chronic (3) Cocaine use disorder Current Visit: Yes Status: Chronic (4) Nicotine dependence Current Visit: Yes Status: Chronic Qualifiers: Nicotine product type: cigarettes Substance use status: in withdrawal Qualified Code(s): F17.213 - Nicotine dependence, cigarettes, with withdrawal (5) Substance induced mood disorder Current Visit: Yes Status: Chronic (6) History of depression Current Visit: Yes Status: Chronic (7) Insomnia Current Visit: Yes Status: Chronic (8) Non-compliance Current Visit: Yes Status: Chronic - Initial Treatment Plan Initial Treatment Plan: Psychoeducation. Sleep hygiene. Support. Groups. Relapse prevention (MAT) revisited. Insomnia is addressed with melatonin. Side effects/benefits discussed. Patient is agreeable with modalities of current care. Observation.
[2018-12-09] MEDS: THIAMINE HCL 100 MG TABLET (FP) PO SCH (21:45)
[2018-12-09] MEDS: MELATONIN 5 MG TABLETS PO PRN (22:14)
[2018-12-10] MEDS: GABAPENTIN 100 MG CAPSULE (FP) PO SCH ×3 (06:27→21:29)
[2018-12-10] MEDS: PRENATAL VITAMINS W/ FOLIC ACID TABLET (FP) PO SCH (09:28)
[2018-12-10] MEDS: BUPRENORPHINE HCL/NALOXONE 12 MG-3 MG SL FILM PACKET SL SCH (09:28)
[2018-12-10] MEDS: amLODIPine BESYLATE 10 MG TABLET (FP) PO SCH (09:28)
[2018-12-10] MEDS: hydrOXYzine PAMOATE 50 MG CAPSULE (FP) PO PRN ×2 (11:09→21:29)
[2018-12-10] MEDS: THIAMINE HCL 100 MG TABLET (FP) PO SCH (21:29)
[2018-12-10] MEDS: MELATONIN 5 MG TABLETS PO PRN (21:30)
[2018-12-11] MEDS: GABAPENTIN 100 MG CAPSULE (FP) PO SCH ×3 (06:03→21:13)
[2018-12-11] MEDS: hydrOXYzine PAMOATE 50 MG CAPSULE (FP) PO PRN ×2 (06:03→14:58)
[2018-12-11] MEDS: PRENATAL VITAMINS W/ FOLIC ACID TABLET (FP) PO SCH (10:34)
[2018-12-11] MEDS: BUPRENORPHINE HCL/NALOXONE 12 MG-3 MG SL FILM PACKET SL SCH (10:34)
[2018-12-11] MEDS: amLODIPine BESYLATE 10 MG TABLET (FP) PO SCH (10:34)
[2018-12-11] MEDS: THIAMINE HCL 100 MG TABLET (FP) PO SCH (21:13)
[2018-12-11] MEDS: MELATONIN 5 MG TABLETS PO PRN (21:14)
[2018-12-12] MEDS: GABAPENTIN 100 MG CAPSULE (FP) PO SCH ×3 (06:35→21:40)
[2018-12-12] MEDS: BUPRENORPHINE HCL/NALOXONE 12 MG-3 MG SL FILM PACKET SL SCH (09:11)
[2018-12-12] MEDS: PRENATAL VITAMINS W/ FOLIC ACID TABLET (FP) PO SCH (09:11)
[2018-12-12] MEDS: hydrOXYzine PAMOATE 50 MG CAPSULE (FP) PO PRN ×3 (09:11→21:40)
[2018-12-12] MEDS: amLODIPine BESYLATE 10 MG TABLET (FP) PO SCH (09:11)
[2018-12-12] MEDS: MELATONIN 5 MG TABLETS PO PRN (21:40)
[2018-12-12] MEDS: THIAMINE HCL 100 MG TABLET (FP) PO SCH (21:40)
[2018-12-13] MEDS: GABAPENTIN 100 MG CAPSULE (FP) PO SCH ×3 (05:57→21:21)
[2018-12-13] MEDS: PRENATAL VITAMINS W/ FOLIC ACID TABLET (FP) PO SCH (09:39)
[2018-12-13] MEDS: amLODIPine BESYLATE 10 MG TABLET (FP) PO SCH (09:39)
[2018-12-13] MEDS: BUPRENORPHINE HCL/NALOXONE 12 MG-3 MG SL FILM PACKET SL SCH (09:39)
[2018-12-13] MEDS: hydrOXYzine PAMOATE 50 MG CAPSULE (FP) PO PRN ×3 (09:40→19:41)
--- NOTE | 2018-12-13 14:52 | PN ---
S Progress Note Note: Patient reports sleeping poorly despite taking Melatonin 10 mg at bedtime. Discussed hypnotic properties of Belsomra with patient and he agreed to try it. Will order Belsomra 10 mg/hs prn for insomnia
[2018-12-13] MEDS: THIAMINE HCL 100 MG TABLET (FP) PO SCH (21:21)
[2018-12-13] MEDS: SUVOREXANT 10 MG TABLET PO PRN (21:22)
[2018-12-14] MEDS: GABAPENTIN 100 MG CAPSULE (FP) PO SCH ×3 (06:25→21:36)
[2018-12-14] MEDS: amLODIPine BESYLATE 10 MG TABLET (FP) PO SCH (09:43)
[2018-12-14] MEDS: hydrOXYzine PAMOATE 50 MG CAPSULE (FP) PO PRN ×3 (09:43→21:36)
[2018-12-14] MEDS: BUPRENORPHINE HCL/NALOXONE 12 MG-3 MG SL FILM PACKET SL SCH (09:43)
[2018-12-14] MEDS: PRENATAL VITAMINS W/ FOLIC ACID TABLET (FP) PO SCH (09:43)
[2018-12-14] MEDS: THIAMINE HCL 100 MG TABLET (FP) PO SCH (21:36)
[2018-12-14] MEDS: SUVOREXANT 10 MG TABLET PO PRN (21:37)
[2018-12-15] MEDS: GABAPENTIN 100 MG CAPSULE (FP) PO SCH ×3 (07:28→21:20)
[2018-12-15] MEDS: amLODIPine BESYLATE 10 MG TABLET (FP) PO SCH (09:30)
[2018-12-15] MEDS: hydrOXYzine PAMOATE 50 MG CAPSULE (FP) PO PRN ×3 (09:30→20:51)
[2018-12-15] MEDS: BUPRENORPHINE HCL/NALOXONE 12 MG-3 MG SL FILM PACKET SL SCH (09:30)
[2018-12-15] MEDS: PRENATAL VITAMINS W/ FOLIC ACID TABLET (FP) PO SCH (09:30)
[2018-12-15] MEDS: SUVOREXANT 10 MG TABLET PO PRN (20:50)
[2018-12-15] MEDS: THIAMINE HCL 100 MG TABLET (FP) PO SCH (21:20)
[2018-12-16] MEDS: GABAPENTIN 100 MG CAPSULE (FP) PO SCH ×3 (06:35→21:48)
[2018-12-16] MEDS: hydrOXYzine PAMOATE 50 MG CAPSULE (FP) PO PRN ×2 (08:53→16:46)
--- NOTE | 2018-12-16 09:37 | PN ---
BHS COWS - Scale Resting Pulse: 1= [place] 81-100 Sweatin= Chills/Flushing Restless Observation: 1= Difficult to Sit Still Pupil Size: 0= Normal to Room Light Bone or Joint Aches: 1= Mild Discomfort Runny Nose/ Eye Tearin= None GI Upset > 30mins: 0= None Tremor Observation of Outstretched Hands: 0= None Yawning Observation: 0= None Anxiety or Irritability: 1=Feels Anxious/Irritable Goose Flesh Skin: 0=Smooth Skin COWS Score: 5 BHS Progress Note (SOAP) Subjective: Patient seen for follow up Suboxone MAT for opiod use disorder. Patient states having minor body aches, chills at night, some anxiety and restlessness. However reports feeling better after dose adjusted to 12mg/3mg daily on 12/09/18. Objective: 12/16/18 09:36 Vital Signs Temperature 98 F 12/15/18 07:13 Pulse Rate 83 12/15/18 10:00 Respiratory Rate 18 12/16/18 07:11 Blood Pressure 143/83 12/15/18 10:00 O2 Sat by Pulse Oximetry (%) PE alert and oriented x 3 skin warm and dry +perrla,eom intact bl neck supple no jvd ext full rom, no tremors amb ad trino Assessment: 12/16/18 09:37 suboxone mat opiod use disorder Plan: continue suboxone 12mg daily monitor clinically
[2018-12-16] MEDS: amLODIPine BESYLATE 10 MG TABLET (FP) PO SCH (09:38)
[2018-12-16] MEDS: PRENATAL VITAMINS W/ FOLIC ACID TABLET (FP) PO SCH (09:38)
--- NOTE | 2018-12-16 09:46 | PN ---
[facility] Progress Note Note: Patient scheduled for discharge tomorrow, 12/17/18 and aftercare arranged for [phone]. Patient states he accomplished rehab goals and is motivated to maintain sobriety. Started on Suboxone MAT during rehab admission for opiod use disorder which has helped him with his opiod cravings. Patient is medically stable and denies SI/HI. Ambulatory Orders Naloxone HCl [Narcan] 4 mg NS PRN PRN #1 spray 12/02/18 Amlodipine Besylate [Norvasc -] 10 mg PO DAILY #30 tablet 12/16/18 Buprenorphine HCl/Naloxone HCl [Suboxone 12 mg-3 mg Sl Film] 1 each SL DAILY #7 film MDD 12mg 12/16/18 Patient to be evaluated in am by provider, if no significant changes, patient stable discharge.
[2018-12-16] MEDS ORDERED: BUPRENORPHINE HCL/NALOXONE 12 MG-3 MG SL FILM PACKET SL ONE (10:00)
[2018-12-16] MEDS ORDERED: SUVOREXANT 10 MG TABLET PO PRN (11:00)
[2018-12-16] MEDS: THIAMINE HCL 100 MG TABLET (FP) PO SCH (21:48)
[2018-12-16] MEDS: SUVOREXANT 10 MG TABLET PO PRN (21:49)
[2018-12-17] MEDS: GABAPENTIN 100 MG CAPSULE (FP) PO SCH ×3 (06:18→21:16)
[2018-12-17] MEDS: hydrOXYzine PAMOATE 50 MG CAPSULE (FP) PO PRN ×2 (08:59→13:14)
--- NOTE | 2018-12-17 09:27 | PN ---
[facility] Progress Note Note: Patient with hx of OUD c/o of anxiety and withdrawal sx on suboxone 12 mg qd and belsomra qhs Vital Signs Temperature 97.7 F 12/17/18 06:55 Pulse Rate 63 12/17/18 06:55 Respiratory Rate 18 12/17/18 06:55 Blood Pressure 133/76 12/17/18 06:55 O2 Sat by Pulse Oximetry (%) AOx3, no acute distress, anxious no adventitious breath sounds full ROM Skin intact,no diaphoresis noted at this time anxiety / OPU clonodine 0.1 mg ORN BID ordered continue suboxone 12 mg qd increase PO fluids sleep hygiene discuss Patient d/c date post poned to 12/20/18 will f[facility] at [facility] Shawn Ferraro Act team continue to monitor
[2018-12-17] MEDS: amLODIPine BESYLATE 10 MG TABLET (FP) PO SCH (09:34)
[2018-12-17] MEDS: PRENATAL VITAMINS W/ FOLIC ACID TABLET (FP) PO SCH (09:34)
[2018-12-17] MEDS: BUPRENORPHINE HCL/NALOXONE 12 MG-3 MG SL FILM PACKET SL SCH (10:53)
[2018-12-17] MEDS: THIAMINE HCL 100 MG TABLET (FP) PO SCH (21:16)
[2018-12-17] MEDS: cloNIDine HCL 0.1 MG TABLET PO PRN (21:17)
[2018-12-17] MEDS: SUVOREXANT 10 MG TABLET PO PRN (21:19)
[2018-12-18] MEDS: GABAPENTIN 100 MG CAPSULE (FP) PO SCH ×3 (06:12→21:22)
[2018-12-18] MEDS: cloNIDine HCL 0.1 MG TABLET PO PRN (07:01)
[2018-12-18] MEDS: amLODIPine BESYLATE 10 MG TABLET (FP) PO SCH (09:46)
[2018-12-18] MEDS: BUPRENORPHINE HCL/NALOXONE 12 MG-3 MG SL FILM PACKET SL SCH (09:46)
[2018-12-18] MEDS: PRENATAL VITAMINS W/ FOLIC ACID TABLET (FP) PO SCH (09:46)
--- NOTE | 2018-12-18 10:41 | PN ---
BHS COWS - Scale Resting Pulse: 0= [place] 80 or Below Sweatin= Chills/Flushing Restless Observation: 0= Sits Still Pupil Size: 0= Normal to Room Light Bone or Joint Aches: 2= Severe Diffuse Aches Runny Nose/ Eye Tearin= Runny Nose/Eyes GI Upset > 30mins: 1= Stomach Cramp Tremor Observation of Outstretched Hands: 1= Tremor [place], Not Seen Yawning Observation: 1= 1-2x During Session Anxiety or Irritability: 1=Feels Anxious/Irritable Goose Flesh Skin: 0=Smooth Skin COWS Score: 9 BHS Progress Note (SOAP) Subjective: Patient c/o that he is still feeling WD symptoms and the clonidine is not working. Objective: Physical: General: anxious HEENT: PERRLA Lungs: clear Heart: s1 s2 audible, regular ABD: + BS, hyperactive Neuro: cn 2-12 intact, no neurological deficits noted 12/18/18 10:43 Assessment: WD symptoms unrelieved with present dose of suboxone 12/18/18 10:44 Plan: Suboxone increased to 16 mg daily divided into 2 dose. Will increase dose today by giving an additional dose of 4mg suboxone this evening, then start 8mg BID tomorrow.
[2018-12-18] MEDS ORDERED: BUPRENORPHINE/NALOXONE 8 MG/2 MG FILM PACKET SL SCH (17:00)
[2018-12-18] MEDS ORDERED: BUPRENORPHINE/NALOXONE 4 MG/1 MG FILM PACKET SL ONE ×2 (17:00→22:00)
[2018-12-18] MEDS: hydrOXYzine PAMOATE 50 MG CAPSULE (FP) PO PRN (17:05)
[2018-12-18] MEDS: THIAMINE HCL 100 MG TABLET (FP) PO SCH (21:22)
[2018-12-18] MEDS: SUVOREXANT 10 MG TABLET PO PRN (21:23)
[2018-12-19] MEDS: GABAPENTIN 100 MG CAPSULE (FP) PO SCH ×3 (06:18→21:37)
[2018-12-19] MEDS: BUPRENORPHINE/NALOXONE 8 MG/2 MG FILM PACKET SL SCH ×2 (06:18→16:57)
[2018-12-19] MEDS: cloNIDine HCL 0.1 MG TABLET PO PRN ×2 (06:19→17:02)
[2018-12-19] MEDS: hydrOXYzine PAMOATE 50 MG CAPSULE (FP) PO PRN (09:54)
[2018-12-19] MEDS: PRENATAL VITAMINS W/ FOLIC ACID TABLET (FP) PO SCH (09:54)
[2018-12-19] MEDS: amLODIPine BESYLATE 10 MG TABLET (FP) PO SCH (09:54)
[2018-12-19] MEDS: SUVOREXANT 10 MG TABLET PO PRN (21:38)
[2018-12-19] MEDS: THIAMINE HCL 100 MG TABLET (FP) PO SCH (21:38)
[2018-12-20] MEDS: GABAPENTIN 100 MG CAPSULE (FP) PO SCH ×3 (07:17→23:29)
[2018-12-20] MEDS: BUPRENORPHINE/NALOXONE 8 MG/2 MG FILM PACKET SL SCH ×2 (07:22→16:44)
[2018-12-20] MEDS ORDERED: BUPRENORPHINE/NALOXONE 8 MG/2 MG FILM PACKET ONE (07:25)
[2018-12-20] MEDS: hydrOXYzine PAMOATE 50 MG CAPSULE (FP) PO PRN ×2 (08:51→14:58)
[2018-12-20] MEDS: cloNIDine HCL 0.1 MG TABLET PO PRN (08:51)
[2018-12-20] MEDS: PRENATAL VITAMINS W/ FOLIC ACID TABLET (FP) PO SCH (09:12)
[2018-12-20] MEDS: amLODIPine BESYLATE 10 MG TABLET (FP) PO SCH (09:12)
[2018-12-20] MEDS: NICOTINE POLACRILEX 4 MG GUM BUC PRN (09:13)
[2018-12-20 12:33] VITALS: BMI 22.7
[2018-12-20] MEDS: THIAMINE HCL 100 MG TABLET (FP) PO SCH (23:29)
[2018-12-21] MEDS: BUPRENORPHINE/NALOXONE 8 MG/2 MG FILM PACKET SL SCH ×2 (06:35→19:56)
[2018-12-21] MEDS: GABAPENTIN 100 MG CAPSULE (FP) PO SCH ×3 (06:35→21:31)
[2018-12-21] MEDS: hydrOXYzine PAMOATE 50 MG CAPSULE (FP) PO PRN ×2 (09:12→14:10)
[2018-12-21] MEDS: PRENATAL VITAMINS W/ FOLIC ACID TABLET (FP) PO SCH (09:12)
[2018-12-21] MEDS: amLODIPine BESYLATE 10 MG TABLET (FP) PO SCH (09:12)
[2018-12-21] MEDS: THIAMINE HCL 100 MG TABLET (FP) PO SCH (21:31)
[2018-12-21] MEDS: SUVOREXANT 10 MG TABLET PO PRN (21:32)
[2018-12-22] MEDS: BUPRENORPHINE/NALOXONE 8 MG/2 MG FILM PACKET SL SCH ×2 (06:41→16:02)
[2018-12-22] MEDS: GABAPENTIN 100 MG CAPSULE (FP) PO SCH ×3 (06:50→21:41)
[2018-12-22] MEDS: PRENATAL VITAMINS W/ FOLIC ACID TABLET (FP) PO SCH (09:22)
[2018-12-22] MEDS: hydrOXYzine PAMOATE 50 MG CAPSULE (FP) PO PRN (09:22)
[2018-12-22] MEDS: amLODIPine BESYLATE 10 MG TABLET (FP) PO SCH (09:22)
[2018-12-22] MEDS: THIAMINE HCL 100 MG TABLET (FP) PO SCH (21:41)
[2018-12-23] MEDS: BUPRENORPHINE/NALOXONE 8 MG/2 MG FILM PACKET SL SCH ×2 (06:06→16:03)
[2018-12-23] MEDS: GABAPENTIN 100 MG CAPSULE (FP) PO SCH ×3 (06:07→21:40)
[2018-12-23] MEDS: hydrOXYzine PAMOATE 50 MG CAPSULE (FP) PO PRN ×3 (09:03→17:05)
[2018-12-23] MEDS: PRENATAL VITAMINS W/ FOLIC ACID TABLET (FP) PO SCH (10:14)
[2018-12-23] MEDS: amLODIPine BESYLATE 10 MG TABLET (FP) PO SCH (10:16)
[2018-12-23] MEDS ORDERED: PT OWN MED DRAWER 7, Y5N ONE (16:04)
[2018-12-23] MEDS: THIAMINE HCL 100 MG TABLET (FP) PO SCH (21:40)
[2018-12-23] MEDS: SUVOREXANT 10 MG TABLET PO PRN (21:41)
[2018-12-24] MEDS ORDERED: PT OWN MED DRAWER 7, Y5N ONE (06:13)
[2018-12-24] MEDS: BUPRENORPHINE/NALOXONE 8 MG/2 MG FILM PACKET SL SCH (06:17)
[2018-12-24] MEDS: hydrOXYzine PAMOATE 50 MG CAPSULE (FP) PO PRN (06:17)
[2018-12-24] MEDS: GABAPENTIN 100 MG CAPSULE (FP) PO SCH (06:36)
[2018-12-24 07:48] VITALS: BP 115/73; PULSE 56; TEMP 97.8
== END 2018-12-24 07:00 | disposition home or self-care (01) | DRG 895 ==
LOC: YASAS 11:55 → Y3W 11:56
PROVIDERS: ADMIT Neuromusculoskeletal Medicine & OMM; ATTEND Neuromusculoskeletal Medicine & OMM
PROC: HZ42ZZZ Group Counseling for Substance Abuse Treatment, Cognitive-Behavioral (ICD-10-PCS; principal; 2018-12-03)
DX: F11.23 Opioid dependence with withdrawal (principal); F14.20 Cocaine dependence, uncomplicated; F10.20 Alcohol dependence, uncomplicated; F17.213 Nicotine dependence, cigarettes, with withdrawal; F19.24 Other psychoactive substance dependence with psychoactive substance-induced mood disorder; G47.00 Insomnia, unspecified; Z86.74 Personal history of sudden cardiac arrest; Z91.19 Patient's noncompliance with other medical treatment and regimen; Z59.0 Homelessness
CPT/HCPCS: J0735